=== PATIENT | male | born 1955 | race Caucasian/White ===

== ENCOUNTER 2020-03-17 20:42 | Emergency (ER) | payer MEDICARE, OTHER ==
[~2020-03-17] VITALS: Ht 177.8 cm; Wt 63.5 kg
[~2020-03-17 20:42] MED LIST: ALPR1TAB7 PO; CITA-77 PO; HYDR-4833 PO; LEVEMIR SC; METR500T PO; PANC24002 PO; QUET100T46 PO
[2020-03-18 01:14] VITALS: BP 131/74
[2020-03-18] MEDS ORDERED: KETOROLAC TROMETH 60MG/2ML VIAL IM ONE (01:15)
== END 2020-03-18 02:31 | disposition home or self-care (01) ==
LOC: ER 20:42
DX: S93.401A Sprain of unspecified ligament of right ankle, initial encounter (principal); W17.81XA Fall down embankment (hill), initial encounter; Y93.01 Activity, walking, marching and hiking; Y92.89 Other specified places as the place of occurrence of the external cause; Y99.8 Other external cause status
CPT/HCPCS: 73610; 96372; 99283; J1885